=== PATIENT | female | born 1940 | race Caucasian/White ===

== ENCOUNTER → 2016-10-13 | Day surgery (SDC) | payer MEDICARE, BC ==
[~2016-10-13] MED LIST: ACET325 PO; ACETAMINOPHEN/HYDROcodone 325 MG/5 MG TAB ONE; ASPI81TA82 PO; BUPIVACAINE HCL PF 0.5% 30 ML VIAL ONE; BUPIVACAINE/EPINEPHRINE 0.5% PF 30 ML VIAL ONE; CARV3.12 PO; DICL50 PO; FIORIC PO; FOLI1TAB PO; GABA300C3 PO; HYDROCORTISONE SOD SUCCINATE 100 MG VIAL ONE; LACTATED RINGER'S 1000 ML INJ 1,000 ML ONE; MEPERIDINE HCL 25 MG/ML VIAL IV ONE; MIDAZOLAM HCL 2 MG/2 ML VIAL ONE; OMPR20CCR PO; ONDANSETRON HCL 4 MG/2 ML VIAL IV PUSH ONE; PRED5 PO; PROG100C PO; PROPOFOL 200 MG/20 ML AMP IV ONE; ceFAZolin INJ 1,000 MG VIAL ONE
--- NOTE | 2016-10-13 10:23 | RADRPT ---
EXAM DATE/TIME: 10/13/2016 08:47 [facility] COMPARISON: FLUOROSCOPY PORTABLE UP TO 1HR, October 13, 2016, 0:00. INDICATIONS : Hardware removal. MEDICAL HISTORY : Prior fracture. SURGICAL HISTORY : Fracture repair. ENCOUNTER: Initial ACUITY: 1 day PAIN SCORE: Non-responsive. LOCATION: Right knee. FINDINGS: The exam demonstrates an old fracture through the distal right radius. The hardware has been removed. The alignment is adequate. CONCLUSION: 1. Successful hardware removal from the distal right radial fracture. Cyril Robison MD on October 13, 2016 at 10:01 Board Certified Radiologist. This report was verified electronically.
--- NOTE | 2016-10-15 11:07 | MP ---
cc: KELSIE SOLOMON DATE OF SURGERY: 10/13/2016 PREOPERATIVE DIAGNOSIS: Right knee painful hardware. POSTOPERATIVE DIAGNOSIS: Right knee painful hardware. OPERATION: Removal of deep hardware, right knee. SURGEON: Dr. Kelsie Solomon. SPINNING AND WINDING SUPERVISOR: Boris SCHUSTER. ANESTHESIA: General. ESTIMATED BLOOD LOSS: Less than 50 cc TOURNIQUET TIME: Zero minutes. COMPLICATIONS: None. JUSTIFICATION: The patient is a 76 year-old female who sustained previous right tibia plateau fracture. She has undergone previous surgical open reduction internal fixation with Dr. Pulido, in [place]. She has had some collapse across her fracture with failed hardware and symptomatic pain in this region. The patient was counseled as to the risks, benefits and alternatives of removal of the deep hardware right knee. She did wish to proceed. PROCEDURE IN DETAIL: A written consent obtained. The patient was identified by name, taken to the operating room, placed supine on the operating room table. General anesthesia was administered as well as 1 gram of IV Ancef. The right lower extremity was prepped and draped using isopropyl alcohol, Hibiclens solution and DuraPrep solution. After time-out was performed, a longitudinal incision was made over the lateral aspect of the right lower extremity. Dissection was carried down to the level of hardware. The soft tissues were protected and a screwdriver was used to remove all screws. A [place] elevator was then used to elevate the freely deep hardware plate and this was all subsequently removed. The surgical wound was then thoroughly irrigated with sterile saline solution. The deep fascial layer was closed with #1 Vicryl suture. The subcutaneous layer closed with 3-0 Vicryl suture. Skin was closed with Dermabond. Sterile dressing applied. The patient tolerated the procedure well. No intraoperative complication noted. MD JOAQUÍN Crane/VALERIE /10:06 AM /11:01 AM
== END | disposition home or self-care (01) ==
LOC: ESDC 07:32
PROVIDERS: ATTEND Orthopaedic Surgery Sports Medicine
DX: T84.84XA Pain due to internal orthopedic prosthetic devices, implants and grafts, initial encounter (principal)
CPT/HCPCS: 01400; 20680; 73560; 76000; J0690; J1720; J2175; J2250; J2405; J3010; J7120

== ENCOUNTER 2016-11-23 13:53 | Inpatient (IN) | payer MEDICARE, BC ==
[~2016-11-23] VITALS: Ht 165.1 cm; Wt 68.2 kg
[2016-11-24] MEDS ORDERED: WARF-20 PO (10:37)
[2016-11-24] MEDS ORDERED: VOLT100T PO (10:37)
[2016-11-24] MEDS ORDERED: PRIL20TA2 PO (10:37)
[2016-11-24] MEDS ORDERED: PRED1 PO (10:37)
[2016-11-24] MEDS ORDERED: GABA300C5 PO (10:37)
[2016-11-24] MEDS ORDERED: FOLI1TAB6 PO (10:37)
[2016-11-24] MEDS ORDERED: CARV6.252 PO (10:37)
[2016-11-24] MEDS ORDERED: PROG100C PO (10:37)
[2016-11-24] MEDS ORDERED: WARF-60 PO (10:37)
[2016-11-24] MEDS ORDERED: BUTATAB6 PO (10:37)
[2016-11-24] MEDS ORDERED: MENE0.3T3 PO (10:37)
[2016-12-11] MEDS ORDERED: ENOX40P SQ (06:50)
[2016-12-11] MEDS ORDERED: HYDR-3288 PO (06:51)
[2016-12-11] MEDS ORDERED: ASPI81CH37 CHEW (06:51)
[2016-12-11 07:09] VITALS: BP 142/63; PULSE 57; RESP 18; TEMP 98.2; O2SAT 99
[2016-12-11] MEDS ORDERED: ceFAZolin 2 GM PREMIX 50 ML ONE (07:46)
[2016-12-11] MEDS ORDERED: VANCOMYCIN HCL 1000 MG VIAL ONE (07:46)
[2016-12-11] MEDS ORDERED: DEXAMETHASONE SOD PHOS 20 MG/5 ML VIAL ONE (07:46)
[2016-12-11] MEDS ORDERED: DEXAMETHASONE SOD PHOS 20 MG/5 ML VIAL IV SCH (07:52)
[2016-12-11] MEDS ORDERED: GENTAMICIN SULFATE 80 MG/2 ML VIAL ONE (07:54)
[2016-12-11] MEDS ORDERED: LACTATED RINGER'S 1000 ML INJ 1,000 ML ONE (08:03)
[2016-12-11 08:08] LABS: PROTHROMBIN TIME - PATIENT 10.9 SEC (9.8-11.6)
[2016-12-11] MEDS ORDERED: Post-op Orders (for Pharmacy) MISC XX ONE (08:30)
[2016-12-11] MEDS ORDERED: ZOLPIDEM TARTRATE 5 MG TAB PO PRN (08:30)
[2016-12-11] MEDS ORDERED: ONDANSETRON HCL 4 MG/2 ML VIAL IVP PRN (08:30)
[2016-12-11] MEDS ORDERED: ACETAMINOPHEN/HYDROcodone 325 MG/7.5 MG TAB PO PRN (08:30)
[2016-12-11] MEDS ORDERED: SODIUM CHLORIDE 0.9% FLUSH 5 ML FLUSH IVF PRN (08:30)
[2016-12-11] MEDS ORDERED: diphenhydrAMINE HCL 50 MG/ML VIAL IV PRN (08:30)
[2016-12-11] MEDS ORDERED: BISACODYL 10 MG SUPP RECTAL PRN (08:30)
[2016-12-11] MEDS ORDERED: MIDAZOLAM HCL 2 MG/2 ML VIAL ONE (08:55)
[2016-12-11] MEDS ORDERED: APREPITANT 40 MG CAP ONE (08:55)
[2016-12-11] MEDS ORDERED: FAMOTIDINE 20 MG/2 ML VIAL ONE (08:56)
[2016-12-11] MEDS ORDERED: TRANEXAMIC PERI-ARTICULAR 3,000 MG/NS 100 ML P-ARTICULR SCH ×2 (09:00)
[2016-12-11] MEDS ORDERED: VANCOMYCIN 1000 MG/NS 250 ML (for <70 kg) IV SCH ×2 (09:00)
[2016-12-11] MEDS ORDERED: TRANEXAMIC ACID IV SCH (09:00)
[2016-12-11] MEDS ORDERED: ROPIVACAINE PERI-ARTICULAR INJECTION. P-ARTICULR SCH ×5 (09:00)
[2016-12-11] MEDS ORDERED: SODIUM CHLORIDE 0.9% IV SCH (09:00)
[2016-12-11] MEDS ORDERED: POVIDONE IODINE 7.5% SCRUB 118 ML BOTTLE TOPICAL SCH (09:00)
[2016-12-11] MEDS: SODIUM CHLORIDE 0.9% FLUSH 5 ML FLUSH IVF SCH ×2 (09:00→20:21)
[2016-12-11] MEDS ORDERED: CHLORHEXIDINE GLUCONATE 4% SOLN 120 ML BTL TOPICAL SCH (09:00)
[2016-12-11] MEDS ORDERED: ceFAZolin 2 GM PREMIX 50 ML IV SCH (09:00)
[2016-12-11] MEDS: PANTOPRAZOLE SOD 20 MG DELAYED RELEASE TAB PO SCH (09:30)
[2016-12-11] MEDS ORDERED: PROGESTERONE 100 MG PO SCH (09:45)
[2016-12-11] MEDS: FOLIC ACID 1 MG TAB PO SCH (10:00)
[2016-12-11] MEDS: CARVEDILOL 6.25 MG TAB PO SCH ×2 (10:00→20:21)
[2016-12-11] MEDS: predniSONE 1 MG TAB PO SCH (10:00)
[2016-12-11] MEDS ORDERED: BUPIVACAINE HCL PF 0.5% 30 ML VIAL NERV BLOCK ONE (10:02)
[2016-12-11] MEDS ORDERED: POVIDONE IODINE 5% (ANTISEPSIS KIT) 4 APPLICATIONS EACH NARE PRN (11:00)
[2016-12-11] MEDS ORDERED: METOPROLOL TARTRATE 25 MG TAB PO PRN (11:00)
[2016-12-11] MEDS ORDERED: CHLORHEXIDINE GLUCONATE 2 % 1 PACK (2 CLOTHS) TOPICAL PRN (11:00)
[2016-12-11] MEDS ORDERED: LACTATED RINGER'S 1000 ML IV PRN (11:00)
[2016-12-11] MEDS ORDERED: INSULIN HUMAN REGULAR 1,000 UNITS/10 ML VIAL SQ PRN (11:00)
[2016-12-11] MEDS ORDERED: SODIUM CHLORID 0.9% 500 ML IV PRN (11:00)
[2016-12-11] MEDS ORDERED: ACETAMINOPHEN 1000 MG/100 ML VIAL IV ONE (11:37)
[2016-12-11] MEDS ORDERED: LACTATED RINGER'S 1000 ML INJ 1,000 ML IV ONE (12:58)
[2016-12-11] MEDS ORDERED: ePHEDrine/NS 25 MG/5 ML SYR IV ONE (12:58)
[2016-12-11] MEDS ORDERED: NEOSTIGMINE 3 MG/3 ML SYR IV ONE (12:58)
[2016-12-11] MEDS ORDERED: PROPOFOL 200 MG/20 ML AMP IV ONE (12:58)
[2016-12-11] MEDS ORDERED: ONDANSETRON HCL 4 MG/2 ML VIAL IV PUSH ONE (12:58)
[2016-12-11] MEDS ORDERED: DO NOT ADM ANY ANTICOAGULANT DRUGS PRN (13:03)
[2016-12-11] MEDS ORDERED: *morphine SULFATE 8 MG/ML PERIprocedure ONLY ONE ×3 (13:23→14:14)
[2016-12-11] MEDS ORDERED: fentaNYL CITRATE 250 MCG/5 ML AMP ONE (13:35)
--- NOTE | 2016-12-11 13:41 | HHI.DCPOC ---
Discharge Care Plan Diagnosis: (1) Primary localized osteoarthrosis, lower leg Your Health Problems Are: Difficulty with ADL Goals to Promote Your Health * To prevent worsening of your condition and complications * To maintain your health at the optimal level Directions to Meet Your Goals Take your medications as prescribed Follow your dietary instruction Follow activity as directed Keep your appointments as scheduled Take your immunizations and boosters as scheduled If your symptoms worsen call your PCP, if no PCP go to Urgent Care Center or Emergency Room Smoking is Dangerous to Your Health. Avoid second hand smoke Call the 24-hour hour crisis hotline for domestic abuse at Elvis White Dec 11, 2016 13:41
[2016-12-11] MEDS ORDERED: CPMMACHINE (13:42)
[2016-12-11] MEDS: SODIUM CHLOR 0.9% 1000 ML INJ 1,000 ML IV SCH ×2 (13:47→20:00)
--- NOTE | 2016-12-11 14:12 | RADRPT ---
EXAM DATE/TIME: 12/11/2016 13:26 [facility] COMPARISON: KNEE RIGHT LTD (1 OR 2 VWS), October 13, 2016, 8:47. INDICATIONS : Post right knee replacement MEDICAL HISTORY : None. SURGICAL HISTORY : right knee ENCOUNTER: Initial ACUITY: 1 day PAIN SCORE: 8/10 LOCATION: Right knee FINDINGS: 4 views of the right knee following recent total knee arthroplasty demonstrates a long stem femoral a nd tibial component. There is a radiolucent patellar component. A small joint effusion is present and there is soft tissue gas. No unexpected finding is identified. CONCLUSION: Expected findings are identified following right total knee arthroplasty with longste m prostheses. Alejandro Arboleda MD on December 11, 2016 at 14:09 Board Certified Radiologist. This report was verified electronically.
[2016-12-11 16:00] VITALS: BP 141/64; PULSE 94; RESP 16; TEMP 95.8; O2SAT 95
[2016-12-11] MEDS: WARFARIN SOD 6 MG TAB PO SCH (17:02)
[2016-12-11 19:09] VITALS: O2SAT 95
[2016-12-11 19:41] VITALS: BP 113/56; PULSE 80; RESP 18; TEMP 96.7; O2SAT 98
[2016-12-11 20:00] VITALS: PULSE 70
[2016-12-11] MEDS: GABAPENTIN 300 MG CAP PO SCH (20:21)
[2016-12-11 20:49] LABS: PROTHROMBIN TIME - PATIENT 10.7 SEC (9.8-11.6)
--- NOTE | 2016-12-11 20:53 | HHI.PR ---
Objective Vital Signs Date Time Temp Pulse Resp B/P Pulse Ox O2 Delivery O2 Flow Rate FiO2 12/11/16 19:41 96.7 80 18 113/56 98 12/11/16 19:09 95 Nasal Cannula 2.00 12/11/16 16:00 95.8 94 16 141/64 95 12/11/16 14:45 97.5 88 13 137/64 95 Nasal Cannula 2 12/11/16 14:15 90 22 142/70 94 Nasal Cannula 2 12/11/16 14:00 84 20 129/60 98 Nasal Cannula 2 12/11/16 13:45 83 15 135/62 95 Nasal Cannula 2 12/11/16 13:30 79 16 142/66 96 Nasal Cannula 2 12/11/16 13:15 84 15 153/68 96 Nasal Cannula 2 12/11/16 13:08 93 22 141/63 96 Nasal Cannula 2 12/11/16 13:04 98.1 94 24 176/76 97 Nasal Cannula 2 12/11/16 07:09 98.2 57 18 142/63 99 I/O 12/10/16 12/10/16 12/10/16 12/11/16 12/11/16 12/11/16 06:59 14:59 22:59 06:59 14:59 22:59 Intake Total 2348 ml Output Total 675 ml Balance 1673 ml Intake Oral 5 ml IV Total 343 ml Other 2000 ml Output Urine Total 625 ml Estimated Blood Loss 50 ml Assessment and Plan Assessment and Plan This is a 76-year-old female seen on medical consultation following a revision of right total knee replacement. She was seen by the undersigned in room 1608. She is alert and oriented. Her pain is well controlled. Her right knee is in a CPM machine. She has a history of bilateral cataracts, cardiac murmur, atrial fibrillation on Coumadin, reflux disease, tubal ligation, osteoarthritis, bilateral total hip replacement and right total knee replacement Plan as follows Pain management Physical therapy Bowel regimen Prophylactic antibiotics were given intraoperatively Wound management per orthopedics Follow labs Keep hemoglobin above 8 Replace electrolytes as needed Discussed with patient Discussed with nurse We will follow daily while hospitalized Thank you for this consult Consult dictation to follow Jesus Mccarthy MD Dec 11, 2016 20:53
[2016-12-11] MEDS ORDERED: ESTERIFIED ESTROGENS PO SCH (21:00)
[2016-12-11 23:41] VITALS: BP 100/53; PULSE 79; RESP 17; TEMP 96.4; O2SAT 96
[2016-12-12] VITALS (7 sets, daily range): BP systolic 95–139; BP diastolic 45–60; PULSE 62–86; RESP 18; TEMP 95.5–97.8; O2SAT 96–100
[2016-12-12] MEDS: SODIUM CHLOR 0.9% 1000 ML INJ 1,000 ML IV SCH ×2 (05:58→16:00)
--- NOTE | 2016-12-12 07:27 | MB ---
cc: LEW LANDERS MD DATE OF CONSULTATION: 12/11/2016 DATE OF : 1940 REASON FOR CONSULTATION Medical management. HISTORY OF PRESENT ILLNESS This is a pleasant 76-year-old white female who had an accidental fall back in March 2016 and had knee surgery. Today she had a revision of the right total knee. She is currently in her private room. She is alert, answers questions appropriately and denies any chest pain, no shortness of breath, no headache. Her mouth is very dry secondary to her post-op period. The patient has osteoarthritis and failed her outpatient therapy status. PAST MEDICAL HISTORY 1. History of atrial fibrillation, labile. 2. GERD. 3. Low back pain. 4. Cataracts. 5. Osteoarthritis. PAST SURGICAL HISTORY 1. Tonsillectomy and adenoidectomy. 2. Tubal ligation. 3. Bilateral hip replacement. 4. Negative stress test recently. ALLERGIES No known. MEDICATIONS Medications reported: 1. Prednisone. 2. Pain management. 3. Warfarin. 4. Gabapentin. 5. Carvedilol. 6. Estrogen. 7. Voltaren. 8. Progesterone. 9. Prilosec. 10.Folic acid. SOCIAL HISTORY The patient is , no children, and lives alone. She does have support from her ex- and she has a sister coming into town to help her post-op when she gets home. No alcohol, tobacco or illicit drug use. FAMILY HISTORY Father had a brain tumor. Mother from complications of Alzheimer's disease. REVIEW OF SYSTEMS A 12-point review was obtained. Positives noted are very dry mouth. She is status post revision of right total knee. Other systems are negative or unremarkable. PHYSICAL EXAMINATION VITAL SIGNS: Temperature 97.5, pulse 88, respirations 14, blood pressure 137/64. O2 sat 95; currently on nasal cannula at 2 liters. GENERAL: A slim, well-developed white female who looks younger than her stated age resting in the bed. She is awake and a fairly good historian. SKIN: [place], warm and dry. HEENT: Atraumatic, normocephalic. PERRLA. No scleral icterus. Mucous membranes are dry, especially her oral cavity. NECK: Supple. CARDIOVASCULAR: S1, S2. Rhythm is regular. Systolic murmur grade 3/6 at the left sternal border. She has no edema and her pulses are intact. Extremities are warm. LUNGS: Essentially clear anteriorly and posteriorly with no audible rhonchi. ABDOMEN: Flat, soft, nontender, nondistended. Bowel sounds are soft. EXTREMITIES: Moves her extremities with purpose. She can move the toes on her right foot on command. Her leg is secured and wrapped post-op, and she is currently on the CPM machine. NEUROLOGIC: She is alert and oriented. Speech is clear. PSYCHIATRIC: Mood and affect are appropriate. LABORATORY INR is 1. IMAGING Knee x-ray: Expected findings following a right total knee arthroplasty with long stem prosthesis. ASSESSMENT 1. Right total knee arthroplasty with long stem prosthesis. 2. GERD. 3. History of atrial fibrillation with a negative stress test pre-op. 4. History of low back pain. 5. Osteoarthritis. PLAN Our plan is to monitor her medical management which includes her vital signs q.4h. and as needed. Will reconcile her medications. Will monitor her heart rate and blood pressure. Post-op pain management as well as post-op ortho care will be managed by the orthopedic team. Will place the patient on telemetry. Her palpable rhythm is regular. Will monitor for any atrial fibrillation or any dysrhythmia. The patient is full code, full aggressive care. Thank you very much for this consult. Dictated by: HERB Topete MD CHRISTIANO Hawkins/SHANE /5:55 PM /6:59 AM
--- NOTE | 2016-12-12 08:33 | PD.ORT.PN ---
Subjective Post Op Day #: 1 Subjective Remarks pain under control. Objective Vitals Vital Signs Date Time Temp Pulse Resp B/P Pulse Ox O2 Delivery O2 Flow Rate FiO2 12/12/16 04:30 96.8 70 18 95/55 100 12/11/16 23:41 96.4 79 17 100/53 96 12/11/16 20:00 70 12/11/16 19:41 96.7 80 18 113/56 98 12/11/16 19:09 95 Nasal Cannula 2.00 12/11/16 16:00 95.8 94 16 141/64 95 12/11/16 14:45 97.5 88 13 137/64 95 Nasal Cannula 2 12/11/16 14:15 90 22 142/70 94 Nasal Cannula 2 12/11/16 14:00 84 20 129/60 98 Nasal Cannula 2 12/11/16 13:45 83 15 135/62 95 Nasal Cannula 2 12/11/16 13:30 79 16 142/66 96 Nasal Cannula 2 12/11/16 13:15 84 15 153/68 96 Nasal Cannula 2 12/11/16 13:08 93 22 141/63 96 Nasal Cannula 2 12/11/16 13:04 98.1 94 24 176/76 97 Nasal Cannula 2 I/O 12/11/16 12/11/16 12/11/16 12/12/16 12/12/16 12/12/16 06:59 14:59 22:59 06:59 14:59 22:59 Intake Total 2348 ml 480 ml 240 ml Output Total 675 ml 350 ml 300 ml Balance 1673 ml 130 ml -60 ml Intake Oral 5 ml 480 ml 240 ml IV Total 343 ml Other 2000 ml Output Urine Total 625 ml 350 ml 300 ml Estimated Blood Loss 50 ml # Bowel Movements 0 0 Other Results Laboratory Tests Test 12/11/16 19:52 Prothrombin Time 10.7 SEC (9.8-11.6) Prothromb Time International 1.0 RATIO Ratio Objective Remarks in bed, nad dressing c/d/i neg homans nvi Assessment & Plan Ortho Post Op Day #: 1 Problem List: Assessment and Plan s/p R TKA wbat daily dressing changes resume coumadin d/c planning home with [facility] and pt f/up [facility] [place] 2 weeks Elvis White Dec 12, 2016 08:33
[2016-12-12] MEDS: CARVEDILOL 6.25 MG TAB PO SCH ×2 (08:34→20:48)
[2016-12-12] MEDS: SODIUM CHLORIDE 0.9% FLUSH 5 ML FLUSH IVF SCH ×2 (08:34→21:00)
[2016-12-12] MEDS: PANTOPRAZOLE SOD 20 MG DELAYED RELEASE TAB PO SCH (08:34)
[2016-12-12] MEDS: FOLIC ACID 1 MG TAB PO SCH (08:34)
--- NOTE | 2016-12-12 08:35 | HHI.FF ---
Face to Face Verification Diagnosis: (1) Primary localized osteoarthrosis, lower leg Physical Therapy Gait training, Transfer training, bed to chair Knee: Total knee, Protocol: Right, Full weight bearing Right LE Weight Bearing: WB as tolerated Nursing RN: 3 days/week x 2 weeks Nursing: Dressing changes Dressing Changes: Daily dressing change I have seen patient Rebecca Colindres on 12/12/16. My clinical findings support the need for the requested home health care services because: Limited ability to care for self High risk of falls I certify that my clinical findings support that this patient is homebound because: Post-op weakness Unsteady gait/balance Elvis White Dec 12, 2016 08:35
[2016-12-12] MEDS: predniSONE 1 MG TAB PO SCH (08:46)
[2016-12-12 09:13] LABS: HEMATOCRIT 29.2 % (35.0-46.0); MEAN CELL VOLUME 91.8 FL (80.0-100.0); MEAN CORPUSCULAR HEMOGLOBIN 30.9 PG (27.0-34.0); MEAN CORPUSCULAR HGB CONC 33.6 % (32.0-36.0); PLATELET COUNT 166 TH/MM3 (150-450); RED BLOOD COUNT 3.18 MIL/MM3 (4.00-5.30); RED CELL DISTRIBUTION WIDTH 14.2 % (11.6-17.2); REVIEW FLAG FINAL; WHITE BLOOD COUNT 8.4 TH/MM3 (4.0-11.0)
[2016-12-12 09:24] LABS: BICARBONATE 27.9 MEQ/L (21.0-32.0); MAGNESIUM 1.9 MG/DL (1.5-2.5); POTASSIUM 4.4 MEQ/L (3.5-5.1)
--- NOTE | 2016-12-12 11:54 | HHI.PR ---
Subjective Subjective Remarks right knee pain minimal working with PT BM yesterday no cp no sob no n/v tolerating diet well tele reviewed, SR stable, afib yesterday Review of Systems Constitutional Constitutional Remarks 12 point ros completed, negative except as noted above Vitals/Results Intake & Output 12/11/16 12/11/16 12/12/16 15:00 23:00 07:00 Intake Total 2348 ml 480 ml 240 ml Output Total 675 ml 350 ml 300 ml Balance 1673 ml 130 ml -60 ml Intake Oral 5 ml 480 ml 240 ml IV Total 343 ml Other 2000 ml Output Urine Total 625 ml 350 ml 300 ml Estimated Blood Loss 50 ml # Bowel Movements 0 0 Vital Signs Vital Signs Date Time Temp Pulse Resp B/P Pulse Ox O2 Delivery O2 Flow Rate FiO2 12/12/16 10:37 100 12/12/16 08:00 96.9 62 18 98/45 100 12/12/16 04:30 96.8 70 18 95/55 100 12/11/16 23:41 96.4 79 17 100/53 96 12/11/16 20:00 70 12/11/16 19:41 96.7 80 18 113/56 98 12/11/16 19:09 95 Nasal Cannula 2.00 12/11/16 16:00 95.8 94 16 141/64 95 12/11/16 14:45 97.5 88 13 137/64 95 Nasal Cannula 2 12/11/16 14:15 90 22 142/70 94 Nasal Cannula 2 12/11/16 14:00 84 20 129/60 98 Nasal Cannula 2 12/11/16 13:45 83 15 135/62 95 Nasal Cannula 2 12/11/16 13:30 79 16 142/66 96 Nasal Cannula 2 12/11/16 13:15 84 15 153/68 96 Nasal Cannula 2 12/11/16 13:08 93 22 141/63 96 Nasal Cannula 2 12/11/16 13:04 98.1 94 24 176/76 97 Nasal Cannula 2 CBC/BMP: 12/12/16 0702 12/12/16 0702 Lab Results Laboratory Tests Test 12/11/16 12/12/16 19:52 07:02 Prothrombin Time 10.7 SEC Prothromb Time International 1.0 RATIO Ratio White Blood Count 8.4 TH/MM3 Red Blood Count 3.18 MIL/MM3 Hemoglobin 9.8 GM/DL Hematocrit 29.2 % Mean Corpuscular Volume 91.8 FL Mean Corpuscular Hemoglobin 30.9 PG Mean Corpuscular Hemoglobin 33.6 % Concent Red Cell Distribution Width 14.2 % Platelet Count 166 TH/MM3 Mean Platelet Volume 7.9 FL Sodium Level 135 MEQ/L Potassium Level 4.4 MEQ/L Chloride Level 103 MEQ/L Carbon Dioxide Level 27.9 MEQ/L Anion Gap 4 MEQ/L Blood Urea Nitrogen 11 MG/DL Creatinine 0.86 MG/DL Estimat Glomerular Filtration 64 ML/MIN Rate Random Glucose 82 MG/DL Calcium Level 8.2 MG/DL Phosphorus Level 2.7 MG/DL Magnesium Level 1.9 MG/DL Physical Exam General General Appearance: Well Developed, Well Nourished, No Acute Distress, Comfortable Eyes Eye Exam: Pupils Equal, Pupils Reactive Ears & Nose Ears & Nose Exam: Nasal Mucosa [place] Throat Throat Exam: Oral Mucosa [place] & Moist Neck Neck Exam: Neck Supple, Trachea Midline Pulmonary Resp Exam: Clear Bilaterally, No Distress Cardiology CV Exam: Regular Gastrointestinal/Abdomen GI Exam: Soft, Non-Tender, Non-Distended Musculoskeletal MS Exam: Joints Intact MS Remarks Right knee dressing D/I Integumentary Skin Exam: Warm, Dry Extremeties Extremities Exam: Pedal Pulses Palpable, Trace Edema Neurologic Neuro Exam: Alert, Awake, Oriented, Speech Clear, Sanitary Landfill Supervisor Equal VTE Prophylaxis VTE Prophylaxis Device: SCDs VTE Prophylaxis Meds: Coumadin Assessment/Plan Assessment/Plan ASSESSMENT 1. Right total knee arthroplasty 2. GERD. 3. Atrial fibrillation with a negative stress test pre-op. 4. History of low back pain. 5. Osteoarthritis. PLAN continue with post op ortho care pain management PT Wound care Bowel regimen Coumadin for DVT prophylaxis Hx afib, stable telemetry monitoring Continue Coreg HH stable continue with PT D/W RN D/W pt and D/W Dr. Mccarthy This pt was seen by myself and Dr. Mccarthy, this note is written on his behalf Corina Faustin Dec 12, 2016 11:54
[2016-12-12] MEDS: ACETAMINOPHEN/HYDROcodone 325 MG/7.5 MG TAB PO PRN ×2 (12:44→16:34)
[2016-12-12] MEDS: WARFARIN SOD 6 MG TAB PO SCH (16:32)
--- NOTE | 2016-12-12 16:41 | MP ---
cc: KELSIE RITCHIE M.D. DATE OF SURGERY: 12/11/2016 PREOPERATIVE DIAGNOSIS: Right knee osteoarthritis. Right tibial plateau fracture, status post open reduction, internal fixation with failure of fixation, collapse of the tibia and severe vagus performance. POSTOPERATIVE DIAGNOSIS: Right knee osteoarthritis. Right tibial plateau fracture, status post open reduction, internal fixation with failure of fixation, collapse of the tibia and severe vagus performance. OPERATION: Right total knee arthroplasty with revision components. SURGEON: Kelsie Ritchie MD. PUBLICATIONS SALES REPRESENTATIVE: HERB Partida ANESTHESIA: General with adductor canal block. ESTIMATED BLOOD LOSS: 100 cc. TOURNIQUET TIME: One hour, 53 minutes at 250 mmHg. COMPLICATIONS: None. IMPLANTS USED: Depuye Sigma size 3 posterior stabilized femoral component size 14 x 115 mm. Femoral stem size 2.5 mm sigma rotating platform tibia baseplate, size 29 mm sleeve size 14 x 75 mm tibial stem size 12.5 mm polyethylene tibial insert, size 32 patella. JUSTIFICATION: This patient is a 76-year-old female who had a previous severe right tibial plateau fracture. She has undergone previous treatment with Dr. Gómez Damon at [facility], to include Open reduction, internal fixation tibia plateau fracture. She has significant symptoms of pain and deformity has been progressively worse since her surgery. [facility]. She did have evidence of prior failure of surgical fixation with collapse of the fracture and retained lateral hardware. The patient has undergone a surgical procedure were I removed the lateral hardware. She has been able to heal that wound and incision. The patient has severe collapse across her fracture. Her pain and deformity prevents her from activities of daily living. She has failed greater than 3 months of prior treatment to include medications, physical therapy, bracing, ambulatory assisted aids, home exercise program, activity modification. X-rays of the knee showed severe collapse across the fracture with the resulting deformity and post traumatic osteoarthritis. The patient was counseled as and alternatives to a surgical total knee arthroplasty. The risks such include but limited to bleeding the age, infection damage to nerves, blood vessels, fracture, loosening, failure of components, blood clots, pulmonary embolism, stroke, even . The patient's pain is severe. She favored benefits over the risks, she did wish to surgery. A written consent obtained. The patient identified by name, taken to the operating room, supine on the operating room table, general anesthesia was administered as well as 2 grams of IV Ancef 1 gram of IV vancomycin. A well-padded tourniquet placed right thigh. The right lower extremity was prepped and draped using Isopropyl alcohol, Hibiclens solution and Chloraprep solution. After time-out was performed an Esmarch bandage was used to exsanguinate the right lower extremity and tourniquet inflated to 250 mmHg, a large incision was made over the anterior aspect of the right knee, a medial parapatellar arthrotomy was performed patella was everted. Approximately 8 mm of patella was resected and a 32 mm guide was placed, [address] the 32-mm trial fit well. Attention turned to the femur were an intramedullary guide was placed. The distal femoral guide was set to remove 10 mm of distal femur, 5 degrees off the anatomic valgus axis alignment oscillating saw was used to perform the distal femoral cut. There is evidence of some bone deficiency and void of the lateral femoral condyle, I took an additional 2 mm of distal femur, in order to get an appropriate cut. Attention turned to the tibia where a extramedullary tibial guide was set to remove 6 mm of the lowest portion of medial tibial plateau. The tibia guide was placed, tibia was performed. There is evidence of a severe void deficiency in the lateral tibial plateau and I resected an additional 3 mm of the tibia. At this point 10 mm spacer block showed full extension. Attention was turned back to the femur. The AP sizing block measured size to size three. The anterior reference 3 degree external rotation guide was used to pin a size three block in place. The anterior patient service coordinator chamfer cuts were performed. A size 3, PCL box and pinned in place and PCL box with an oscillating saw. The medial lateral meniscus remnants were removed as well as bone and soft tissue debris from patient service coordinator portion of the knee. There is evidence of severe osteoporosis of bone and the patient had some deficiency of the medial femoral condyle. Attention turned back to the tibia where an intramedullary guide sridhar was placed, this was followed by sequential reaming up to size 14. Subsequently a Xcoveryuy sleeve broach 29 mm was then tamped into place for purchase and fixation. Trial was evaluated and final components were then cemented in place as above. With the 12.5 mm polyethylene tibial insert, the leg achieved full extension, 0 degrees of flexion to proximally 135 the patella was noted to track centrally. There was grade 1 valgus laxity at full extension. Tourniquet deflated Bovie cautery was used for hemostasis, surgical wounds thoroughly irrigated sterile saline pulse lavage, antibiotic impregnated solution. The arthrotomy incision was closed with #1 Vicryl suture, subcutaneous tissue with 2-0 Vicryl suture. Skin was closed Dermabond. Sterile dressing applied. The patient tolerated the procedure with no intraoperative complications noted. Boris White physician registered nurse first assistant was present during the procedure to include patient positioning. It was felt that it was a medical necessity of physician registered nurse first assistant was indicated due to laxity, he assisted with appropriate manipulation leg and also traction, muscle, tendon bone, neurovascular structure. He assisted with preparation of bone and also implantation of the prosthetic replacement. MD JOAQUÍN Crane/sasha /12:35 PM /3:56 PM
[2016-12-12] MEDS: MULTIVITAMINS/MINERALS THERAPEUTIC TAB PO SCH (20:48)
[2016-12-12] MEDS: DOCUSATE SODIUM 100 MG CAP PO SCH (20:48)
[2016-12-12] MEDS: MORPHINE SULFATE 4 MG/ML INJ IV PUSH PRN (20:48)
[2016-12-13] VITALS (7 sets, daily range): BP systolic 118–181; BP diastolic 57–75; PULSE 62–91; RESP 16–18; TEMP 98.3–98.9; O2SAT 92–100
[2016-12-13] MEDS: ACETAMINOPHEN/HYDROcodone 325 MG/7.5 MG TAB PO PRN ×5 (00:18→21:04)
[2016-12-13] MEDS: GABAPENTIN 300 MG CAP PO SCH ×2 (00:18→21:02)
[2016-12-13] MEDS: MORPHINE SULFATE 4 MG/ML INJ IV PUSH PRN (00:40)
[2016-12-13] MEDS: SODIUM CHLOR 0.9% 1000 ML INJ 1,000 ML IV SCH ×3 (02:00→22:00)
--- NOTE | 2016-12-13 07:46 | PD.ORT.PN ---
Subjective Post Op Day #: 2 Subjective Remarks increase in pain yesterday and last night after PT. unable to do too much with PT. Objective Vitals Vital Signs Date Time Temp Pulse Resp B/P Pulse Ox O2 Delivery O2 Flow Rate FiO2 12/13/16 04:00 98.9 90 18 149/67 94 12/13/16 00:40 98.3 85 18 181/75 93 12/12/16 20:10 97.8 69 18 139/60 96 12/12/16 19:33 Room Air 12/12/16 17:40 16 12/12/16 16:33 99 21 12/12/16 16:00 96.5 69 18 121/57 97 12/12/16 12:00 95.5 86 18 95/49 100 12/12/16 10:37 100 12/12/16 08:00 96.9 62 18 98/45 100 I/O 12/12/16 12/12/16 12/12/16 12/13/16 12/13/16 12/13/16 07:00 15:00 23:00 07:00 15:00 23:00 Intake Total 240 ml 600 ml 480 ml 480 ml Output Total 300 ml Balance -60 ml 600 ml 480 ml 480 ml Intake Oral 240 ml 600 ml 480 ml 480 ml Output Urine Total 300 ml # Voids 1 3 5 # Bowel Movements 0 0 0 0 Result Diagram: 12/12/16 0712/12/16 0702 Objective Remarks in bed, nad incision no erythema, no drainage neg homans nvi Assessment & Plan Ortho Post Op Day #: 2 Problem List: Assessment and Plan s/p R TKA wbat daily dressing changes resume coumadin PT - gentle ROM, focus on extension CPM as tolerated - caused severe pain yesterday d/c planning home with [facility] and pt f/up dr[place] 2 weeks Elvis White Dec 13, 2016 07:46
--- NOTE | 2016-12-13 08:46 | HHI.PR ---
Subjective History of Present Illness Patient deny any complaint except right knee post op pain. d/w RN and at bed side. Anemia check Iron studies and B12 and Folic acid. Hyponatremia will monitor. Review of Systems Constitutional Constitutional: Fatigue, Weakness Musculoskeletal MS Remarks s/p right knee surgery / post op pain. Vitals/Results Intake & Output 12/12/16 12/12/16 12/13/16 15:00 23:00 07:00 Intake Total 600 ml 480 ml 480 ml Balance 600 ml 480 ml 480 ml Intake Oral 600 ml 480 ml 480 ml # Voids 1 3 5 # Bowel Movements 0 0 0 Vital Signs Vital Signs Date Time Temp Pulse Resp B/P Pulse Ox O2 Delivery O2 Flow Rate FiO2 12/13/16 04:00 98.9 90 18 149/67 94 12/13/16 00:40 98.3 85 18 181/75 93 12/12/16 20:10 97.8 69 18 139/60 96 12/12/16 19:33 Room Air 12/12/16 17:40 16 12/12/16 16:33 99 21 12/12/16 16:00 96.5 69 18 121/57 97 12/12/16 12:00 95.5 86 18 95/49 100 12/12/16 10:37 100 CBC/BMP: 12/12/16 0702 12/12/16 0702 Physical Exam General General Appearance: Well Developed, Well Nourished, No Acute Distress, Comfortable Eyes Eye Exam: Pupils Equal, Pupils Reactive, Sclera White, Extraocular Movement Intact Ears & Nose Ears & Nose Exam: Nasal Mucosa [place] Throat Throat Exam: Oral Mucosa [place] & Moist, Oral Pharynx Normal Neck Neck Exam: Neck Supple, Trachea Midline Pulmonary Resp Exam: Clear Bilaterally, No Distress Cardiology CV Exam: Regular Gastrointestinal/Abdomen GI Exam: Soft, Non-Tender, Non-Distended Musculoskeletal MS Remarks s/p right knee surgery /tenderness right knee / surgical wound right knee. Integumentary Skin Exam: Warm, Dry Skin Remarks surgical wound right knee. Extremeties Extremities Exam: Pedal Pulses Palpable, Trace Edema Neurologic Neuro Exam: Alert, Awake, Oriented, Speech Clear, Texturing Machine Fixer Equal VTE Prophylaxis VTE Prophylaxis Device: SCDs VTE Prophylaxis Meds: Coumadin Assessment/Plan Assessment/Plan ASSESSMENT 1. Right total knee arthroplasty 2. GERD. 3. Atrial fibrillation with a negative stress test pre-op. 4. History of low back pain. 5. Osteoarthritis. 6. Anemia check Iron studies and B12 and Folic acid. 7. Hyponatremia will monitor. PLAN continue with post op ortho care pain management PT Wound care Bowel regimen Coumadin for DVT prophylaxis Hx afib, stable telemetry monitoring Continue Coreg HH stable continue with PT D/W RN D/W pt and Check CBC with diff CMP in AM. Discussed Condition with: Patient Livan Robles MD Dec 13, 2016 08:45
[2016-12-13] MEDS: SODIUM CHLORIDE 0.9% FLUSH 5 ML FLUSH IVF SCH ×2 (09:00→21:00)
[2016-12-13] MEDS: predniSONE 1 MG TAB PO SCH (09:00)
[2016-12-13] MEDS: CARVEDILOL 6.25 MG TAB PO SCH ×2 (09:24→21:03)
[2016-12-13] MEDS: FOLIC ACID 1 MG TAB PO SCH (09:24)
[2016-12-13] MEDS: DOCUSATE SODIUM 100 MG CAP PO SCH ×2 (09:25→21:03)
[2016-12-13] MEDS: PANTOPRAZOLE SOD 20 MG DELAYED RELEASE TAB PO SCH (09:25)
[2016-12-13] MEDS: MULTIVITAMINS/MINERALS THERAPEUTIC TAB PO SCH ×2 (09:25→21:03)
[2016-12-13 10:06] LABS: HEMATOCRIT 31.6 % (35.0-46.0); MEAN CELL VOLUME 90.4 FL (80.0-100.0); MEAN CORPUSCULAR HEMOGLOBIN 30.9 PG (27.0-34.0); MEAN CORPUSCULAR HGB CONC 34.1 % (32.0-36.0); PLATELET COUNT 170 TH/MM3 (150-450); RED CELL DISTRIBUTION WIDTH 13.8 % (11.6-17.2); REVIEW FLAG FINAL
[2016-12-13 10:09] LABS: INTERNATIONAL NORMALIZED RATIO 1.2 RATIO; PROTHROMBIN TIME - PATIENT 13.2 SEC (9.8-11.6)
[2016-12-13 10:28] LABS: BICARBONATE 25.5 MEQ/L (21.0-32.0); POTASSIUM 3.9 MEQ/L (3.5-5.1)
[2016-12-13] MEDS: WARFARIN SOD 6 MG TAB PO SCH (17:14)
[2016-12-14] VITALS: BP 126/69; PULSE 93; RESP 17; TEMP 98; O2SAT 96
[2016-12-14] MEDS: ACETAMINOPHEN/HYDROcodone 325 MG/7.5 MG TAB PO PRN ×5 (01:30→17:22)
[2016-12-14 04:00] VITALS: BP 125/60; PULSE 75; RESP 16; TEMP 98.8; O2SAT 95
[2016-12-14 07:43] LABS: INTERNATIONAL NORMALIZED RATIO 1.4 RATIO; PROTHROMBIN TIME - PATIENT 15.8 SEC (9.8-11.6)
--- NOTE | 2016-12-14 07:52 | PD.ORT.PN ---
Subjective Post Op Day #: 3 Subjective Remarks slightly better. pain meds helping. Objective Vitals Vital Signs Date Time Temp Pulse Resp B/P Pulse Ox O2 Delivery O2 Flow Rate FiO2 12/14/16 04:00 98.8 75 16 125/60 95 12/14/16 00:00 98.0 93 17 126/69 96 12/13/16 19:06 Room Air 12/13/16 19:00 98.7 91 16 128/60 100 12/13/16 17:44 94 21 12/13/16 16:00 98.6 75 18 132/63 94 12/13/16 12:00 98.4 62 18 118/57 100 12/13/16 08:00 98.3 69 18 139/63 92 I/O 12/13/16 12/13/16 12/13/16 12/14/16 12/14/16 12/14/16 07:00 15:00 23:00 07:00 15:00 23:00 Intake Total 480 ml 600 ml 480 ml 480 ml Balance 480 ml 600 ml 480 ml 480 ml Intake Oral 480 ml 600 ml 480 ml 480 ml # Voids 5 3 3 3 # Bowel Movements 0 0 0 0 Result Diagram: 12/13/16 0739 12/13/16 0735 Other Results Laboratory Tests Test 12/14/16 07:20 Prothrombin Time 15.8 SEC (9.8-11.6) Prothromb Time International 1.4 RATIO Ratio Objective Remarks in bed, nad dressing c/d/i neg homans nvi Assessment & Plan Ortho Post Op Day #: 3 Problem List: Assessment and Plan s/p R TKA wbat daily dressing changes resume coumadin PT - gentle ROM, focus on extension CPM as tolerated d/c planning home with [facility] and pt - cleared today patient does not want to go to snf f/up dr. [place] 2 weeks Elvis White Dec 14, 2016 07:52
[2016-12-14 07:55] LABS: AUTOMATED NEUTROPHIL # 5.2 TH/MM3 (1.8-7.7); BASOPHIL % 0.4 % (0.0-2.0); EOSINOPHIL # 0.1 TH/MM3 (0-0.4); EOSINOPHIL % 1.1 % (0.0-4.0); HEMATOCRIT 29.6 % (35.0-46.0); HEMO FLAGS DIFF FINAL; LYMPH % 18.4 % (9.0-44.0); LYMPHOCYTE # 1.4 TH/MM3 (1.0-4.8); MEAN CELL VOLUME 91.4 FL (80.0-100.0); MEAN CORPUSCULAR HEMOGLOBIN 31.3 PG (27.0-34.0); MEAN CORPUSCULAR HGB CONC 34.2 % (32.0-36.0); MONO % 11.9 % (0.0-8.0); NEUT % 68.2 % (16.0-70.0); PLATELET COUNT 159 TH/MM3 (150-450); RED BLOOD COUNT 3.24 MIL/MM3 (4.00-5.30); RED CELL DISTRIBUTION WIDTH 13.7 % (11.6-17.2); WHITE BLOOD COUNT 7.6 TH/MM3 (4.0-11.0)
[2016-12-14] MEDS: SODIUM CHLOR 0.9% 1000 ML INJ 1,000 ML IV SCH ×2 (08:00→18:00)
[2016-12-14 08:05] LABS: ANION GAP 7 MEQ/L (5-15); AST (GOT) 37 U/L (15-37); BICARBONATE 26.9 MEQ/L (21.0-32.0); BLOOD UREA NITROGEN 6 MG/DL (7-18); CHLORIDE 103 MEQ/L (98-107); GLOMERULAR FILTRATION RATE 115 ML/MIN (>89); POTASSIUM 3.4 MEQ/L (3.5-5.1); SODIUM (NA) 137 MEQ/L (136-145)
[2016-12-14 08:07] LABS: ALT (GPT) 23 U/L (10-53)
[2016-12-14 08:09] LABS: ALKALINE PHOSPHATASE 97 U/L (45-117); TOTAL BILIRUBIN ADULT 0.5 MG/DL (0.2-1.0)
[2016-12-14] MEDS: SODIUM CHLORIDE 0.9% FLUSH 5 ML FLUSH IVF SCH (09:00)
[2016-12-14] MEDS: DOCUSATE SODIUM 100 MG CAP PO SCH (09:16)
[2016-12-14] MEDS: MULTIVITAMINS/MINERALS THERAPEUTIC TAB PO SCH (09:17)
[2016-12-14] MEDS: CARVEDILOL 6.25 MG TAB PO SCH (09:17)
[2016-12-14] MEDS: FOLIC ACID 1 MG TAB PO SCH (09:17)
[2016-12-14] MEDS: predniSONE 1 MG TAB PO SCH (09:17)
[2016-12-14] MEDS: PANTOPRAZOLE SOD 20 MG DELAYED RELEASE TAB PO SCH (09:39)
--- NOTE | 2016-12-14 09:45 | HHI.PR ---
Subjective History of Present Illness Patient deny any complaint except right knee post op pain. d/w at bed side. Anemia checked Iron studies and B12 and Folic acid. Hyponatremia will monitor. Review of Systems Constitutional Constitutional: Fatigue, Weakness Musculoskeletal MS Remarks s/p right knee surgery / post op pain. Vitals/Results Intake & Output 12/13/16 12/13/16 12/14/16 15:00 23:00 07:00 Intake Total 600 ml 480 ml 480 ml Balance 600 ml 480 ml 480 ml Intake Oral 600 ml 480 ml 480 ml # Voids 3 3 3 # Bowel Movements 0 0 0 Vital Signs Vital Signs Date Time Temp Pulse Resp B/P Pulse Ox O2 Delivery O2 Flow Rate FiO2 12/14/16 04:00 98.8 75 16 125/60 95 12/14/16 00:00 98.0 93 17 126/69 96 12/13/16 19:06 Room Air 12/13/16 19:00 98.7 91 16 128/60 100 12/13/16 17:44 94 21 12/13/16 16:00 98.6 75 18 132/63 94 12/13/16 12:00 98.4 62 18 118/57 100 CBC/BMP: 12/14/16 0720 12/14/16 0720 Lab Results Laboratory Tests Test 12/14/16 07:20 White Blood Count 7.6 TH/MM3 Red Blood Count 3.24 MIL/MM3 Hemoglobin 10.1 GM/DL Hematocrit 29.6 % Mean Corpuscular Volume 91.4 FL Mean Corpuscular Hemoglobin 31.3 PG Mean Corpuscular Hemoglobin 34.2 % Concent Red Cell Distribution Width 13.7 % Platelet Count 159 TH/MM3 Mean Platelet Volume 8.7 FL Neutrophils (%) (Auto) 68.2 % Lymphocytes (%) (Auto) 18.4 % Monocytes (%) (Auto) 11.9 % Eosinophils (%) (Auto) 1.1 % Basophils (%) (Auto) 0.4 % Neutrophils # (Auto) 5.2 TH/MM3 Lymphocytes # (Auto) 1.4 TH/MM3 Monocytes # (Auto) 0.9 TH/MM3 Eosinophils # (Auto) 0.1 TH/MM3 Basophils # (Auto) 0.0 TH/MM3 CBC Comment DIFF FINAL Differential Comment Prothrombin Time 15.8 SEC Prothromb Time International 1.4 RATIO Ratio Sodium Level 137 MEQ/L Potassium Level 3.4 MEQ/L Chloride Level 103 MEQ/L Carbon Dioxide Level 26.9 MEQ/L Anion Gap 7 MEQ/L Blood Urea Nitrogen 6 MG/DL Creatinine 0.52 MG/DL Estimat Glomerular Filtration 115 ML/MIN Rate Random Glucose 105 MG/DL Calcium Level 8.5 MG/DL Total Bilirubin 0.5 MG/DL Aspartate Amino Transf 37 U/L (AST/SGOT) Alanine Aminotransferase 23 U/L (ALT/SGPT) Alkaline Phosphatase 97 U/L Total Protein 5.8 GM/DL Albumin 2.6 GM/DL Physical Exam General General Appearance: Well Developed, Well Nourished, No Acute Distress, Comfortable Eyes Eye Exam: Pupils Equal, Pupils Reactive, Sclera White, Extraocular Movement Intact Ears & Nose Ears & Nose Exam: Nasal Mucosa [place] Throat Throat Exam: Oral Mucosa [place] & Moist, Oral Pharynx Normal Neck Neck Exam: Neck Supple, Trachea Midline Pulmonary Resp Exam: Clear Bilaterally, No Distress Cardiology CV Exam: Regular Gastrointestinal/Abdomen GI Exam: Soft, Non-Tender, Non-Distended Musculoskeletal MS Remarks s/p right knee surgery /tenderness right knee / surgical wound right knee. Integumentary Skin Exam: Warm, Dry Skin Remarks surgical wound right knee. Extremeties Extremities Exam: Pedal Pulses Palpable, Trace Edema Neurologic Neuro Exam: Alert, Awake, Oriented, Speech Clear, Band Salvager Equal VTE Prophylaxis VTE Prophylaxis Device: SCDs VTE Prophylaxis Meds: Coumadin Assessment/Plan Assessment/Plan ASSESSMENT 1. Right total knee arthroplasty 2. GERD. 3. Atrial fibrillation with a negative stress test pre-op. 4. History of low back pain. 5. Osteoarthritis. 6. Anemia check Iron studies and B12 and Folic acid... noted low Iron. started replacement. 7. Hyponatremia will monitor. PLAN continue with post op ortho care pain management PT Wound care Bowel regimen Coumadin for DVT prophylaxis Hx afib, stable telemetry monitoring Continue Coreg H & H stable continue with PT D/W RN D/W pt and Check CBC with diff CMP in AM. Discussed Condition with: Patient Livan Robles MD Dec 14, 2016 09:45
[2016-12-14] MEDS ORDERED: POTASSIUM CHLORIDE 10 MEQ CONTROLLED RELEASE TAB PO ONE (10:15)
[2016-12-14] MEDS ORDERED: FERROUS SULFATE 325 MG (65 MG ELEMENTAL IRON) TAB PO SCH (11:00)
[2016-12-14 11:02] LABS: TRANSFERRIN 171 MG/DL (213-418); TRANSFERRIN IRON PROFILE 171 MG/DL (200-360)
[2016-12-14 11:05] LABS: FERRITIN 161 NG/ML (8-252)
[2016-12-14 14:15] VITALS: O2SAT 97
[2016-12-14] MEDS ORDERED: FERR325T20 PO (15:01)
[2016-12-14] MEDS: WARFARIN SOD 6 MG TAB PO SCH (17:19)
--- NOTE | 2016-12-17 11:52 | MD ---
cc: KELSIE RITCHIE M.D. ADMISSION DATE: 12/11/2016 DISCHARGE DATE: 12/14/2016 ADMISSION DIAGNOSIS Right knee osteoarthritis and right tibia plateau fracture, status post open reduction internal fixation with failure of fixation, collapse of the tibia and severe valgus deformity. DISCHARGE DIAGNOSIS: Right knee osteoarthritis and right tibia plateau fracture, status post open reduction internal fixation with failure of fixation, collapse of the tibia and severe valgus deformity. HISTORY OF PRESENT ILLNESS Ms. Colindres is a 76-year-old female who presented to the [facility], for evaluation by Dr. Kelsie Ritchie regarding her progressive right knee pain. The patient states that she had an injury many months ago sustaining a tibia plateau fracture and underwent open reduction, internal fixation of the right tibia plateau fracture. She states since then she has noticed her knee has become more valgus. She is still unable to bear weight and has continued discomfort. The patient is unable to walk without assistive device. She states her pain is constant. She has no alleviating factors. 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 The patient was counseled on her diagnosis and treatment options. The risks, benefits, indications were discussed in great detail. The patient elected to proceed with surgical intervention in a staged fashion. The patient approximately 4-6 weeks ago did undergo removal of hardware with the intention of converting to a total knee arthroplasty. Date of surgery: 12/11/2016. Right total knee arthroplasty. Postop after surgery: The patient admitted to [facility] where she received appropriate medical management, pain control, DVT prophylaxis as well as physical therapy. Discharge: Once being discharged from the hospital, the patient was cleared to go home where she received home health care, home physical therapy. She is in stable condition. She may weightbear as tolerated. She will receive daily dressing changes and has been instructed on appropriate wound care management. The patient has been provided a prescription for pain control. She has resumed her Coumadin approximately 23 hours after surgery. The patient has been provided a follow up appointment in approximately two weeks from the day of surgery. Patient has asked appropriate questions which have been answered. The patient is cleared for discharge. Dictated by: Kelsie White PA-C MD JOAQUÍN Crane/VALERIE /7:53 AM /9:18 AM
--- NOTE | 2016-12-17 18:52 | MD ---
cc: LIVAN MANUEL MD ADMISSION DATE: 12/11/2016 DISCHARGE DATE: 12/14/2016 ADMISSION DIAGNOSIS Status post right knee arthroplasty. Other comorbidities include atrial fibrillation, history of low back pain, osteoarthritis, anemia, hyponatremia. Okay to discharge the patient home with home health care. The patient was admitted with accidental fall back in March of 2016 and had knee surgery. She was admitted again for revision of the right total knee. She was admitted under orthopedic and [place] hospitalist was consulted. She was discharged in satisfactory condition to home with home health care. Diet was cardiac diet. Activity as tolerated. Weightbearing per orthopedic advice. ALLERGIES NO KNOWN DRUG ALLERGIES. DISCHARGE MEDICATIONS Include: 1. Butalbital/acetaminophen/ caffeine 50/325/40 one to two tablets p.o. daily as needed for headache. 2. Carvedilol 6.25 mg twice a day. 3. Estrogen 0.3 milligrams q.h.s. 4. Folic acid 1 milligrams p.o. daily. 5. Gabapentin 300 milligrams p.o. bedtime. 6. Omeprazole 20 milligrams p.o. daily. 7. Prednisone 0.5 milligrams p.o. daily. 8. Progesterone micronized to 100 milligrams p.o. daily. 9. Coumadin 4 milligrams p.o. Sunday, Sunday, Sunday. 10. Coumadin 6 milligrams Sunday, Sunday, , Sunday. ____ stop the medication diclofenac sodium 75 milligrams twice a day. The patient was advised to follow with primary care physician and orthopedics in one week. Special instructions, the patient advised to check PT INR and give report to the primary care physician. The patient verbalized understanding. HOSPITAL COURSE This is a 76-year-old female admitted with a revision on the right total knee. The patient status post surgery. The patient remained stable. No acute event happened. The patient had anemia with a hemoglobin of 10.1, 10.8. WBC count was normal 7.6. Platelet count was 159, normal. The patient had mild hypokalemia which has resolved. The patient had low iron and was started on iron supplement. PT was 15.8 at the time of discharge. INR was 1.4. B12 level was 500 and folic acid level was greater than 20. Further details in the medical record. Livan Manuel MD EA/VENKATA /2:54 PM /6:31 PM
== END 2016-12-14 18:35 | disposition home health service (06) | DRG 470 ==
LOC: HSDI 12-11 06:58 → N06A 12-11 15:15
PROVIDERS: ADMIT Orthopaedic Surgery Sports Medicine; ATTEND Orthopaedic Surgery Sports Medicine
PROC: 0SRC0J9 Replacement of Right Knee Joint with Synthetic Substitute, Cemented, Open Approach (ICD-10-PCS; principal; 2016-12-11 09:25)
DX: M17.31 Unilateral post-traumatic osteoarthritis, right knee (principal); T84.196A Other mechanical complication of internal fixation device of bone of right lower leg, initial encounter; M81.0 Age-related osteoporosis without current pathological fracture; Y83.8 Other surgical procedures as the cause of abnormal reaction of the patient, or of later complication, without mention of misadventure at the time of the procedure
CPT/HCPCS: 73560; 80048; 80053; 82607; 82728; 82746; 83540; 83550; 83735; 84100; 84466; 85025; 85027; 85610; 86850; 86900; 86901; 94150; C1776; J0131; J0171; J0690; J0735; J1100; J1580; J1885; J2250; J2270; J2405; J2710; J2795; J3010; J3370; J7030; J7120; J7512; J8501; L1830

== ENCOUNTER → 2016-11-24 | Outpatient (CLI) | payer MEDICARE, BC ==
[~2016-11-24] MED LIST changes: -ACETAMINOPHEN/HYDROcodone 325 MG/5 MG TAB ONE; -BUPIVACAINE HCL PF 0.5% 30 ML VIAL ONE; -BUPIVACAINE/EPINEPHRINE 0.5% PF 30 ML VIAL ONE; +BUTATAB6 PO; +CARV6.252 PO; +FOLI1TAB6 PO; +GABA300C5 PO; -HYDROCORTISONE SOD SUCCINATE 100 MG VIAL ONE; -LACTATED RINGER'S 1000 ML INJ 1,000 ML ONE; +MENE0.3T3 PO; -MEPERIDINE HCL 25 MG/ML VIAL IV ONE; -MIDAZOLAM HCL 2 MG/2 ML VIAL ONE; -ONDANSETRON HCL 4 MG/2 ML VIAL IV PUSH ONE; +PRED1 PO; +PRIL20TA2 PO; -PROPOFOL 200 MG/20 ML AMP IV ONE; +VOLT100T PO; +WARF-20 PO; +WARF-60 PO; -ceFAZolin INJ 1,000 MG VIAL ONE
[2016-11-24 11:29] LABS: AUTOMATED NEUTROPHIL # 4.4 TH/MM3 (1.8-7.7); BASOPHIL % 0.6 % (0.0-2.0); EOSINOPHIL # 0.1 TH/MM3 (0-0.4); EOSINOPHIL % 2.2 % (0.0-4.0); HEMATOCRIT 36.3 % (35.0-46.0); HEMO FLAGS DIFF FINAL; LYMPH % 21.8 % (9.0-44.0); LYMPHOCYTE # 1.4 TH/MM3 (1.0-4.8); MEAN CELL VOLUME 92.9 FL (80.0-100.0); MEAN CORPUSCULAR HEMOGLOBIN 30.3 PG (27.0-34.0); MEAN CORPUSCULAR HGB CONC 32.6 % (32.0-36.0); MONO % 7.4 % (0.0-8.0); PLATELET COUNT 214 TH/MM3 (150-450); RED BLOOD COUNT 3.91 MIL/MM3 (4.00-5.30); RED CELL DISTRIBUTION WIDTH 14.6 % (11.6-17.2); WHITE BLOOD COUNT 6.5 TH/MM3 (4.0-11.0)
[2016-11-24 11:34] LABS: APTT (PATIENT) 33.1 SEC (24.3-30.1); INTERNATIONAL NORMALIZED RATIO 2.1 RATIO; PROTHROMBIN TIME - PATIENT 23.9 SEC (9.8-11.6)
[2016-11-24 11:54] LABS: BLOOD, URINE NEG (NEG); COMMENT (UR) CULT NOT INDICATED; CULTURE IF INDICATED CULT NOT INDICATED; GLUCOSE,URINE NEG (NEG); KETONE, URINE NEG (NEG); MUCUS URINE FEW /lpf (OCC); NITRITE,URINE NEG (NEG); SQUAMOUS EPITHELIAL CELL URINE 1 /hpf (0-5); URINE COLOR YELLOW (YELLW/STRAW)
[2016-11-24 11:57] LABS: ANION GAP 7 MEQ/L (5-15); AST (GOT) 13 U/L (15-37); BLOOD UREA NITROGEN 15 MG/DL (7-18); CHLORIDE 105 MEQ/L (98-107); GLOMERULAR FILTRATION RATE 70 ML/MIN (>89); GLUCOSE,FASTING 85 MG/DL (74-99); POTASSIUM 4.3 MEQ/L (3.5-5.1); SODIUM (NA) 142 MEQ/L (136-145)
[2016-11-24 12:00] LABS: ALKALINE PHOSPHATASE 101 U/L (45-117); ALT (GPT) 18 U/L (10-53); TOTAL BILIRUBIN ADULT 0.2 MG/DL (0.2-1.0)
--- NOTE | 2016-11-24 12:12 | RADRPT ---
EXAM DATE/TIME: 11/24/2016 11:47 [facility] COMPARISON: No previous studies available for comparison. INDICATIONS : Evaluate for pneumonia, pneumothorax or communicable disease. MEDICAL HISTORY : None. SURGICAL HISTORY : None. ENCOUNTER: Initial ACUITY: 1 day PAIN SCORE: 0/10 LOCATION: Bilateral chest FINDINGS: The lungs are clear without infiltrate, nodule, or mass. There is no appreciable pleural effusion fo r technique. Heart and mediastinum are unremarkable. Degenerative changes and hypertrophic changes a re seen within the disc space and facets of the thoracic spine. CONCLUSION: No acute cardiopulmonary disease. Svetlana Queen MD on November 24, 2016 at 12:10 Board Certified Radiologist. This report was verified electronically.
[2016-11-24 12:41] LABS: WESTERGREN SEDIMENTATION RATE 17 mm/hr (0-30)
== END ==
LOC: CPRE 10:01
PROVIDERS: ATTEND Orthopaedic Surgery Sports Medicine
DX: Z01.812 Encounter for preprocedural laboratory examination (principal); Z01.811 Encounter for preprocedural respiratory examination; M17.11 Unilateral primary osteoarthritis, right knee; M25.50 Pain in unspecified joint; Z96.60 Presence of unspecified orthopedic joint implant; Z79.01 Long term (current) use of anticoagulants
CPT/HCPCS: 36415; 71020; 80053; 81001; 85025; 85610; 85652; 85730

== ENCOUNTER 2016-12-22 14:32 | Observation (INO) | payer MEDICARE, BC ==
[~2016-12-22] VITALS: Ht 165.1 cm; Wt 63.0 kg
[~2016-12-22 14:32] MED LIST changes: -ACET325 PO; -ASPI81TA82 PO; -CARV3.12 PO; +CPMMACHINE; -DICL50 PO; +FERR325T20 PO; -FIORIC PO; -FOLI1TAB PO; -GABA300C3 PO; -OMPR20CCR PO; -PRED5 PO; -VOLT100T PO
[2016-12-22 14:55] VITALS: BP 109/65; PULSE 72; RESP 19; TEMP 98.2; O2SAT 98
[2016-12-22 14:59] VITALS: BP 109/65; PULSE 79; RESP 19; TEMP 98.2; O2SAT 97
[2016-12-22] MEDS ORDERED: ASPI81CH CHEW (15:07)
[2016-12-22] MEDS ORDERED: WARF-23 PO (15:07)
[2016-12-22] MEDS ORDERED: DICL75TA PO (15:08)
[2016-12-22] MEDS ORDERED: WARF-20 PO (15:09)
[2016-12-22] MEDS ORDERED: oxyCODONE/ACETAMINOPHEN 5 MG/325 MG TAB PO ONE ×2 (16:30→17:15)
--- NOTE | 2016-12-22 17:21 | RADRPT ---
EXAM DATE/TIME: 12/22/2016 16:41 [facility] COMPARISON: No previous studies available for comparison. INDICATIONS : Right shoulder pain after fall. MEDICAL HISTORY : None. SURGICAL HISTORY : None. ENCOUNTER: Initial ACUITY: 1 day PAIN SCORE: 5/10 LOCATION: Right Shoulder FINDINGS: 4 views of the right shoulder demonstrate no fracture or dislocation. The acromioclavicular joint is intact but demonstrates mild osteoarthritis change. The visualized soft tissues demonstrate no abnorm ality. Visualized portions of the right lung are clear. No displaced rib fracture is seen. CONCLUSION: No acute abnormality is identified. There is osteoarthritis at the acromioclavicular joint. Alejandro Arboleda MD on December 22, 2016 at 17:19 Board Certified Radiologist. This report was verified electronically.
--- NOTE | 2016-12-22 17:23 | RADRPT ---
EXAM DATE/TIME: 12/22/2016 16:54 [facility] COMPARISON: No previous studies available for comparison. INDICATIONS : Left knee pain after fall. MEDICAL HISTORY : None. SURGICAL HISTORY : None. ENCOUNTER: Initial ACUITY: 1 day PAIN SCORE: 4/10 LOCATION: Left Knee FINDINGS: Four views of the left knee demonstrate no fracture or dislocation. No joint effusion is present. The re is no significant arthropathy and mineralization is decreased. No soft tissue abnormality or radio paque foreign body is identified. CONCLUSION: No acute abnormality. Alejandro Arboleda MD on December 22, 2016 at 17:21 Board Certified Radiologist. This report was verified electronically.
--- NOTE | 2016-12-22 17:23 | RADRPT ---
EXAM DATE/TIME: 12/22/2016 16:41 [facility] COMPARISON: No previous studies available for comparison. INDICATIONS : Right hip pain after fall. MEDICAL HISTORY : None. SURGICAL HISTORY : Total knee replacement, right. ENCOUNTER: Initial ACUITY: 1 day PAIN SCORE: 4/10 LOCATION: Right Hip FINDINGS: AP view of the pelvis with 2 views of the right hip joint demonstrate no fracture or dislocation. William ateral total hip arthroplasty hardware is present and demonstrates no acute finding. No soft tissue a bnormality is seen. CONCLUSION: No acute abnormality is identified. Alejandro Arboleda MD on December 22, 2016 at 17:20 Board Certified Radiologist. This report was verified electronically.
--- NOTE | 2016-12-22 17:35 | PD ---
HPI Chief Complaint: Fall Time Seen by Provider: 15:13 Travel History International Travel<30 days: No Contact w/Intl Traveler<30days: No Traveled to known affect area: No History of Present Illness HPI 76-year-old presents emergent from after a fall. She reports that she had a right total knee replacement done with Dr. Solomon on 819. She was recovering well. She went home. She is on warfarin for A. fib. She got a call from her third shift lieutenant that her INR is 9.5. She went to the [facility] where she received FFP was in the hospital until her INR drop. Is 1.27 this morning. She 'll at [facility] this morning and then while going home had a fall where she was walking and her knee give out on her and she fell and hurt her right shoulder her hips, her right knee. She has trouble raising the right shoulder and tenderness in the right shoulder. History Past Medical History Narrative Medical A. fib, on warfarin Social History Alcohol Use: No Tobacco Use: No Allergies-Medications (Allergen,Severity, Reaction): Coded Allergies: No Known Allergies (Unverified , 12/22/16) Reported Meds & Prescriptions Reported Meds & Active Scripts Active Ferosul (Ferrous Sulfate) 325 Mg Tablet 325 Mg PO BID CPM-Continuous Passive Motion Machine 1 Ea Device 1 Ea .ROUTE DIRECTED Reported Warfarin 4 Mg Tab 4 Mg PO DAILY Diclofenac Sodium DR (Diclofenac Sodium) 75 Mg Tabdr 75 Mg PO BID Aspirin 81 Mg Chew 81 Mg CHEW DAILY Prilosec (Omeprazole Magnesium) 20 Mg Tab 1 Tab PO DAILY Prednisone 1 Mg Tab 0.5 Mg PO DAILY Carvedilol 6.25 Mg Tab 6.25 Mg PO BID Hiuvyxmmzi-Cpqhsysnlchwf-Mifyljpm 50-325-40 Mg Tab 1-2 Tab PO DAILY PRN Do not exceed 6 tablets/day. Menest (Estrogens, Esterified) 0.3 Mg Tab 0.3 Mg PO HS Progesterone Micronized 100 Mg Cap 100 Mg PO DAILY Gabapentin 300 Mg Cap 300 Mg PO HS Folic Acid 1 Mg Tablet 1 Mg PO DAILY Review of Systems Except as stated in HPI: all other systems reviewed are Neg Physical Exam Narrative GENERAL: Well-appearing 76 showed woman, no acute distress. SKIN: Focused skin assessment warm/dry. HEAD: Atraumatic. Normocephalic. EYES: Pupils equal and round. No scleral icterus. No injection or drainage. ENT: No nasal bleeding or discharge. Mucous membranes pink and moist. NECK: Trachea midline. No JVD. CARDIOVASCULAR: Regular rate and rhythm. No murmur appreciated. RESPIRATORY: No accessory muscle use. Clear to auscultation. Breath sounds equal bilaterally. GASTROINTESTINAL: Abdomen soft, non-tender, nondistended. Hepatic and splenic margins not palpable. MUSCULOSKELETAL: Right shoulder is a little bit tenderness. She has pain with active range of motion. She has less pain with passive range of motion. She cannot abduct above the horizontal. Examination of the right knee reveals a little bit of bruising well-healing incision in the midline with an effusion. There is a little bit of warmth but she states is been there chronically. Hips and pelvis are unremarkable. She otherwise looks well. NEUROLOGICAL: Awake and alert. No obvious cranial nerve deficits. Motor grossly within normal limits. Normal speech. PSYCHIATRIC: Appropriate mood and affect; insight and judgment normal. Data Data Last Documented VS Vital Signs Date Time Temp Pulse Resp B/P (MAP) Pulse Ox O2 Delivery O2 Flow Rate FiO2 12/22/16 14:59 98.2 79 19 109/65 (80) 97 Room Air Orders Orders Hip, Ap Only W Ap Pelvis (12/22/16 ) Knee, Complete (4vws) (12/22/16 ) Shoulder, Complete (>2vws) (12/22/16 ) Oxycodone-Acetamin 5-325 Mg (Percocet (12/22/16 16:30) Knee, Complete (4vws) (12/22/16 ) Oxycodone-Acetamin 5-325 Mg (Percocet (12/22/16 17:15) MDM Medical Decision Making Medical Screen Exam Complete: Yes Emergency Medical Condition: Yes Differential Diagnosis Knee injury, hip injury, shoulder injury, other Narrative Course Medical decision making This a 76 old presents emergent from with mostly postop right knee pain, some hip pain, and some right shoulder pain after she fell onto the walker catching herself mostly with the right arm. She looks well. There concern is if she is safe to go home. She fallen once and hasn't really done well. I think she would do better either in long-term or back in the hospital. She would like to avoid rehabilitation if possible it is related except that. My suspicion is she likely needs a couple days in long-term to get her gait and strength back especially being on the warfarin and high risk for falls. Slick Jenkins MD Dec 22, 2016 17:34
--- NOTE | 2016-12-22 18:01 | RADRPT ---
EXAM DATE/TIME: 12/22/2016 17:22 [facility] COMPARISON: KNEE RIGHT LTD (1 OR 2 VWS), December 11, 2016, 13:26. INDICATIONS : Right knee pain after fall. MEDICAL HISTORY : None. SURGICAL HISTORY : Total knee replacement, right. ENCOUNTER: Initial ACUITY: 1 day PAIN SCORE: 10/10 LOCATION: Right Knee FINDINGS: There is prepatellar soft tissue swelling. No fracture or subluxation. Right total knee arthroplasty appears intact and normally aligned. CONCLUSION: Anterior soft tissue swelling without acute bony abnormality. Alejandro Graham MD on December 22, 2016 at 17:59 Board Certified Radiologist. This report was verified electronically.
[2016-12-22 19:37] VITALS: BP 138/62; PULSE 78; RESP 17; O2SAT 97
[2016-12-22 19:50] LABS: AUTOMATED NEUTROPHIL # 6.3 TH/MM3 (1.8-7.7); BASOPHIL % 0.3 % (0.0-2.0); EOSINOPHIL # 0.1 TH/MM3 (0-0.4); EOSINOPHIL % 1.5 % (0.0-4.0); HEMATOCRIT 35.5 % (35.0-46.0); HEMO FLAGS DIFF FINAL; LYMPH % 19.6 % (9.0-44.0); LYMPHOCYTE # 1.7 TH/MM3 (1.0-4.8); MEAN CELL VOLUME 91.2 FL (80.0-100.0); MEAN CORPUSCULAR HEMOGLOBIN 29.7 PG (27.0-34.0); MEAN CORPUSCULAR HGB CONC 32.5 % (32.0-36.0); MONO % 7.4 % (0.0-8.0); NEUT % 71.2 % (16.0-70.0); PLATELET COUNT 366 TH/MM3 (150-450); RED CELL DISTRIBUTION WIDTH 14.5 % (11.6-17.2); WHITE BLOOD COUNT 8.9 TH/MM3 (4.0-11.0)
[2016-12-22 20:08] LABS: BICARBONATE 27.6 MEQ/L (21.0-32.0); POTASSIUM 3.6 MEQ/L (3.5-5.1)
[2016-12-22 20:13] LABS: APTT (PATIENT) 28.1 SEC (24.3-30.1); INTERNATIONAL NORMALIZED RATIO 1.1 RATIO
--- NOTE | 2016-12-22 21:27 | PD ---
Data Data Last Documented VS Vital Signs Date Time Temp Pulse Resp B/P (MAP) Pulse Ox O2 Delivery O2 Flow Rate FiO2 12/22/16 19:39 78 17 97 Room Air 12/22/16 19:37 138/62 (87) 12/22/16 14:59 98.2 Orders Orders Hip, Ap Only W Ap Pelvis (12/22/16 ) Knee, Complete (4vws) (12/22/16 ) Shoulder, Complete (>2vws) (12/22/16 ) Oxycodone-Acetamin 5-325 Mg (Percocet (12/22/16 16:30) Knee, Complete (4vws) (12/22/16 ) Oxycodone-Acetamin 5-325 Mg (Percocet (12/22/16 17:15) Basic Metabolic Panel (Bmp) (12/22/16 19:07) Complete Blood Count With Diff (12/22/16 19:07) Prothrombin Time / Inr (Pt) (12/22/16 19:07) Act Partial Throm Time (Ptt) (12/22/16 19:07) Labs Laboratory Tests Test 12/22/16 19:35 White Blood Count 8.9 TH/MM3 Red Blood Count 3.90 MIL/MM3 Hemoglobin 11.6 GM/DL Hematocrit 35.5 % Mean Corpuscular Volume 91.2 FL Mean Corpuscular Hemoglobin 29.7 PG Mean Corpuscular Hemoglobin Concent 32.5 % Red Cell Distribution Width 14.5 % Platelet Count 366 TH/MM3 Mean Platelet Volume 6.9 FL Neutrophils (%) (Auto) 71.2 % Lymphocytes (%) (Auto) 19.6 % Monocytes (%) (Auto) 7.4 % Eosinophils (%) (Auto) 1.5 % Basophils (%) (Auto) 0.3 % Neutrophils # (Auto) 6.3 TH/MM3 Lymphocytes # (Auto) 1.7 TH/MM3 Monocytes # (Auto) 0.7 TH/MM3 Eosinophils # (Auto) 0.1 TH/MM3 Basophils # (Auto) 0.0 TH/MM3 CBC Comment DIFF FINAL Differential Comment Prothrombin Time 12.0 SEC Prothromb Time International Ratio 1.1 RATIO Activated Partial Thromboplast Time 28.1 SEC Blood Urea Nitrogen 8 MG/DL Creatinine 0.62 MG/DL Random Glucose 93 MG/DL Calcium Level 8.9 MG/DL Sodium Level 140 MEQ/L Potassium Level 3.6 MEQ/L Chloride Level 102 MEQ/L Carbon Dioxide Level 27.6 MEQ/L Anion Gap 10 MEQ/L Estimat Glomerular Filtration Rate 94 ML/MIN MDM Supervised Visit with FRANK: No Narrative Course The patient was initially evaluated by the previous provider and sent out to me at the beginning of my shift. See his note for further details. Briefly this is a 76 year old female with recent revision of right knee replacement earlier this month, admitted to [facility] a few days ago for an INR of 9.5, discharged today, returns to our emergency department today after falling while using her walker. Patient landed onto her right side and is complaining of right knee, right hip, right shoulder pain. She denies head injury or LOC. Left knee x-ray: No acute abnormality. Right knee x-ray: Anterior soft tissue swelling without acute bony abnormality. Right shoulder x-ray: No acute abnormality is identified. There is osteoarthritis at the AC joint. Hip/pelvis x-ray: No acute abnormality is identified. Case management has been involved with this patient throughout her emergency department visit. Initial plan was to try to place her in a SNF, however this cannot be accomplished. The patient will be admitted for overnight observation for likely PT consultation and placement in the morning. Case discussed with [facility] hospitalist MARIELY Bishop. The patient will be admitted to their service under Dr. Meadows. Diagnosis Primary Impression: Fall Qualified Codes: W19.XXXA - Unspecified fall, initial encounter Additional Impressions: Contusion of right knee Qualified Codes: S80.01XA - Contusion of right knee, initial encounter Unsteady gait Admitting Information Admitting Physician Requests: Observation Jurgen Pratt MD Dec 22, 2016 21:27
[2016-12-22] MEDS ORDERED: SENNOSIDES 8.6 MG TAB PO PRN (22:15)
[2016-12-22] MEDS ORDERED: ONDANSETRON HCL 4 MG/2 ML VIAL IVP PRN (22:15)
[2016-12-22] MEDS ORDERED: NALOXONE HCL 0.4 MG/ML AMP IV PRN (22:15)
[2016-12-22] MEDS ORDERED: ACETAMINOPHEN 325 MG TAB PO PRN (22:15)
[2016-12-22] MEDS ORDERED: SODIUM CHLORIDE 0.9% FLUSH 10 ML FLUSH IV FLUSH PRN (22:15)
[2016-12-22] MEDS ORDERED: ACETAMINOPHEN/HYDROcodone 325 MG/7.5 MG TAB PO PRN (22:15)
[2016-12-22] MEDS ORDERED: LACTULOSE SYRUP 20 GM/30 ML CUP PO PRN (22:15)
[2016-12-22] MEDS ORDERED: ACETAMINOPHEN/HYDROcodone 325 MG/5 MG TAB PO PRN (22:15)
[2016-12-22 22:19] VITALS: O2SAT 97
[2016-12-22] MEDS ORDERED: GABAPENTIN 300 MG CAP PO SCH (22:30)
[2016-12-22] MEDS ORDERED: oxyCODONE/ACETAMINOPHEN 5 MG/325 MG TAB PO PRN (22:30)
[2016-12-22 23:20] VITALS: BP 133/60; PULSE 99; RESP 17; TEMP 97.8; O2SAT 96
[2016-12-22 23:43] VITALS: PULSE 87
[2016-12-22] MEDS: ENOXAPARIN SODIUM 60 MG/0.6 ML SYRINGE SQ SCH (23:56)
[2016-12-22] MEDS: WARFARIN SOD 4 MG TAB PO SCH (23:56)
[2016-12-23] VITALS (7 sets, daily range): BP systolic 129–135; BP diastolic 60–89; PULSE 62–92; RESP 16–20; TEMP 97.9–98.4; O2SAT 94–97
[2016-12-23] MEDS ORDERED: DOCUSATE SODIUM 50 MG/SENNA 8.6 MG TAB PO ONE (01:15)
[2016-12-23] MEDS ORDERED: CARVEDILOL 6.25 MG TAB PO ONE (01:15)
[2016-12-23] MEDS: oxyCODONE/ACETAMINOPHEN 10 MG/325 MG TAB PO PRN ×2 (01:22→15:07)
[2016-12-23] MEDS ORDERED: MISCELLANEOUS NURSING INFORMATION PRN (01:30)
[2016-12-23 06:41] LABS: INTERNATIONAL NORMALIZED RATIO 1.1 RATIO; PROTHROMBIN TIME - PATIENT 12.5 SEC (9.8-11.6)
--- NOTE | 2016-12-23 07:11 | MH ---
cc: LACHELLE BONILLA MD DATE OF ADMISSION: 12/22/2016 ADMITTING DIAGNOSIS: The patient was seen at 2200, with chief complaint of weakness, inability to ambulate. HISTORY OF PRESENT ILLNESS This is a pleasant 76 year old female who recently underwent a right total knee replacement previously in March 2016, underwent a revision on 12/11/2016, she tolerated the surgery well. She was discharged home with home health care. She was home for several days when INR became subtherapeutic and she ended up going to [facility] on 12/20/2016, she was given two units of Fresh frozen plasma and one dose of Vitamin K. She was released earlier today from there. She has not moved around much while she was in the hospital and upon arriving home she went to get out of the car and as she got up her foot was on uneven ground and she lost her balance. She did not completely fall, she hit her walker but she did hurt her shoulder and felt a "crunching in her shoulder". She was not able to use her walker or was she able to bear weight in the right knee thus she could not walk. [facility] was called and she was brought into the house. She attempted to move around later and was unable to and came to the hospital. Through the emergency room they attempted to get her into rehab but this is not feasible given the time of night and thus it was decided that she should be placed on observation and have case management work on her discharge tomorrow. The patient does complain of moderate pain in the right knee and moderate pain in the right shoulder. MEDICATIONS: Please ALLERGIES NONE. PAST MEDICAL HISTORY: 1. Atrial fibrillation 2. Osteoarthritis 3. Temporal arteritis. 4. Gastroesophageal reflux disease secondary to medications. PAST SURGICAL HISTORY: 1. Tubal ligation 2. Tonsillectomy. 3. Bilateral total hip replacements. 4. Right total knee replacement. SOCIAL HISTORY: , no tobacco or alcohol. FAMILY HISTORY: Father had brain tumor, mother from Alzheimer's disease. REVIEW OF SYSTEMS The patient states that while she was taking an antiinflammatory it gave her bad heartburn for which she is on proton pump inhibitor, she is off that and currently does not take the proton pump inhibitor at this time. The bowels and bladder have been stable. She denies any specific recent changes in her health. She does note that her right knee is significantly bruised. She did consider going onto on of the anticoagulants with the direction of Dr. Marie her honing machine set up operator however, even with her insurance it was 400 dollars per month and thus she has stuck with Coumadin. PHYSICAL EXAMINATION: VITAL SIGNS: Afebrile. Pulse 99, respirations 17, blood pressure 133/60. O2 saturation is 96% on room air. IN GENERAL: This is a 76 year old female resting comfortably in bed, she is in no distress. HEAD, EYES, EARS, NOSE, AND THROAT: Mucous membranes are moist, no jaundice. NECK: The neck is supple. CARDIOVASCULAR SYSTEM: Irregular, irregular, grade 3/6 systolic ejection murmur is heard. LUNGS: The lungs are clear. GASTROINTESTINAL: Bowel sounds are present. No point tenderness. Or no rebound. GENITOURINARY: No suprapubic tenderness, no costovertebral angle tenderness. MUSCULOSKELETAL SYSTEM: The left lower extremity appears to be within normal limits, distal pulses are palpable. Right lower extremity, the knee incision is bandaged, significant ecchymosis around the bandage is noted but no erythema. Range of motion is not tested. Palpation of the right shoulder reveals no acute abnormality. She is mildly tender over the lateral aspect of the she shoulder, active range of motion, minimal abduction passive range of motion full. NEUROLOGIC: Examination is awake, alert, oriented, speech is clear and fluent. Moves the upper extremities freely. INVESTIGATIONS: White count 8.9, hemoglobin 0.6, platelets are 366. INR 1.1. ____ 140, potassium 3.6, blood urea nitrogen 8, creatinine 0.62. Xray's of the hips and pelvis no acute abnormality, x-rays of the knee, no acute abnormality. X-ray of the right knee shows anterior soft tissue swelling without acute bony abnormality. X-ray of the right shoulder, no acute abnormality. Osteoarthritis at the acromioclavicular joint. IMPRESSION: 1. Inability to ambulate. 2. Subtherapeutic INR (INR on admission is 1.1). 3. Chronic atrial fibrillation. 4. History of temporal arteritis on a small dose of prednisone. 5. Status post recent right total knee. DISCUSSION: The patient was placed on observation status, Dr. Xiao service. PLAN: The plan is to follow up case management for placement in the interim. We will treat her pain with oxycodone. Place her on full dose Lovenox as well as resuming her 4 mg of Coumadin daily. We will check an PT/INR again in the morning. I will ask for a physical therapy consultation. We will resume the rest of her home medications. We will make further recommendations as her case progresses. ESTIMATED LENGTH OF STAY: One to two days, anticipate discharge to group home facility. MD TK Ryan/sasha /11:22 PM /6:17 AM
[2016-12-23] MEDS ORDERED: DOCUSATE SODIUM 50 MG/SENNA 8.6 MG TAB PO SCH (09:00)
[2016-12-23] MEDS ORDERED: CARVEDILOL 6.25 MG TAB PO SCH (09:00)
[2016-12-23] MEDS ORDERED: SODIUM CHLORIDE 0.9% FLUSH 10 ML FLUSH IV FLUSH SCH (09:00)
--- NOTE | 2016-12-23 09:46 | HHI.PR ---
Subjective History of Present Illness I am ok\ R shoulder is sore R knee pain is ok No N/V No abd pain ' denies CP or SOB No fever or chills good appetite offers no other c/o is at bedside Vitals/Results Vital Signs Vital Signs Date Time Temp Pulse Resp B/P (MAP) Pulse Ox O2 Delivery O2 Flow Rate FiO2 12/23/16 08:44 97.9 77 20 129/89 (102) 96 12/23/16 04:18 16 97 12/23/16 04:04 98.4 92 17 130/60 (83) 94 12/23/16 04:04 90 12/22/16 23:43 87 12/22/16 23:20 97.8 99 17 133/60 (84) 96 12/22/16 22:19 97 12/22/16 19:39 78 17 97 Room Air 12/22/16 19:37 78 17 138/62 (87) 97 Room Air 12/22/16 14:59 98.2 79 19 109/65 (80) 97 Room Air 12/22/16 14:59 78 19 97 Room Air 12/22/16 14:55 98.2 72 19 109/65 (80) 98 CBC/BMP: 12/22/16193412/22/161934 Lab Results Laboratory Tests Test 12/22/16 19:35 12/23/16 05:20 White Blood Count 8.9 TH/MM3 Red Blood Count 3.90 MIL/MM3 Hemoglobin 11.6 GM/DL Hematocrit 35.5 % Mean Corpuscular Volume 91.2 FL Mean Corpuscular Hemoglobin 29.7 PG Mean Corpuscular Hemoglobin Concent 32.5 % Red Cell Distribution Width 14.5 % Platelet Count 366 TH/MM3 Mean Platelet Volume 6.9 FL Neutrophils (%) (Auto) 71.2 % Lymphocytes (%) (Auto) 19.6 % Monocytes (%) (Auto) 7.4 % Eosinophils (%) (Auto) 1.5 % Basophils (%) (Auto) 0.3 % Neutrophils # (Auto) 6.3 TH/MM3 Lymphocytes # (Auto) 1.7 TH/MM3 Monocytes # (Auto) 0.7 TH/MM3 Eosinophils # (Auto) 0.1 TH/MM3 Basophils # (Auto) 0.0 TH/MM3 CBC Comment DIFF FINAL Differential Comment Prothrombin Time 12.0 SEC 12.5 SEC Prothromb Time International Ratio 1.1 RATIO 1.1 RATIO Activated Partial Thromboplast Time 28.1 SEC Blood Urea Nitrogen 8 MG/DL Creatinine 0.62 MG/DL Random Glucose 93 MG/DL Calcium Level 8.9 MG/DL Sodium Level 140 MEQ/L Potassium Level 3.6 MEQ/L Chloride Level 102 MEQ/L Carbon Dioxide Level 27.6 MEQ/L Anion Gap 10 MEQ/L Estimat Glomerular Filtration Rate 94 ML/MIN Physical Exam General General Appearance: No Acute Distress, Comfortable Appearance Remarks elderly WF Eyes Eye Exam: Pupils Equal, Sclera White Ears & Nose Ears & Nose Exam: Nasal Mucosa [place] Throat Throat Exam: Oral Mucosa [place] & Moist Neck Neck Exam: Neck Supple, Trachea Midline Pulmonary Resp Exam: Clear Bilaterally, Breath Sounds Equal Cardiology CV Exam: Regular, Murmur CV Remarks soft systolic murmur Gastrointestinal/Abdomen GI Exam: Soft, Non-Tender, Bowel Sounds Present Musculoskeletal MS Remarks R shoulder tender , hurt to raise arm actively FROM passively, No swelling or warmth. R knee swelling w mild bruising , healing surgical incision , No drainage , no redness . No sig warmth. Extremeties Extremities Exam: Pedal Pulses Palpable Neurologic Neuro Exam: Alert, Awake, Oriented, Speech Clear, Moving All Extremities Psychiatric Psych Exam: Appropriate Responses VTE Prophylaxis VTE Prophylaxis Meds: Coumadin Assessment/Plan Assessment/Plan IMPRESSION: . s/p Recent R Total knee arthroplasty . . s/p Near fall w R shoulder strain . difficult to ambulate. . Subtherapeutic INR (INR on admission is 1.1). . Chronic atrial fibrillation on coumadin. . fluctuating INR . History of temporal arteritis on a small dose of prednisone. . Hx GERD . Anemia PLAN clinically stable cont amnalgesic cont coumadin [ Newer Novel AC , she cannot afford], f/u INR closely daily PT Ice R shoulder cont BB cont neurontin stol softener cont current tx pt will benefit from SNF placement as she strained/sprained her R shoulder & will have difficulty using R arm/ walker to ambulate ss to arrange for snf d/c to SNF when arrangements are made d/w PT & , they agreed. d/w SW see MRS see HRS f/u pcp f/u Ortho total time spent > 40 min Melba Meadows MD Dec 23, 2016 09:46
[2016-12-23] MEDS ORDERED: SENN1TAB PO (10:14)
[2016-12-23] MEDS ORDERED: OXYC1TAB63 PO (10:14)
[2016-12-23] MEDS: ENOXAPARIN SODIUM 60 MG/0.6 ML SYRINGE SQ SCH (15:09)
[2016-12-23] MEDS: WARFARIN SOD 4 MG TAB PO SCH (16:16)
== END 2016-12-23 18:19 | disposition home or self-care (01) ==
LOC: NEPD 14:32 → NEDA 21:28 → NEPGCP 23:16
PROVIDERS: ADMIT Specialist; ATTEND Specialist
DX: R53.1 Weakness (principal); R79.1 Abnormal coagulation profile; I48.2 Chronic atrial fibrillation; S46.911A Strain of unspecified muscle, fascia and tendon at shoulder and upper arm level, right arm, initial encounter; S80.01XA Contusion of right knee, initial encounter; M25.562 Pain in left knee; M25.561 Pain in right knee; M25.511 Pain in right shoulder; M25.552 Pain in left hip; M25.551 Pain in right hip; D64.9 Anemia, unspecified; K21.9 Gastro-esophageal reflux disease without esophagitis; R01.1 Cardiac murmur, unspecified; M19.011 Primary osteoarthritis, right shoulder; Z79.01 Long term (current) use of anticoagulants; Z96.651 Presence of right artificial knee joint; Z96.643 Presence of artificial hip joint, bilateral; W19.XXXA Unspecified fall, initial encounter
CPT/HCPCS: 73030; 73501; 73564; 80048; 85025; 85610; 85730; 96372; 97162; 99285; G0378; G8987; G8988; J1650

== ENCOUNTER → 2017-02-23 | Day surgery (SDC) | payer MEDICARE, BC ==
[~2017-02-23] MED LIST changes: +ACETAMINOPHEN/HYDROcodone 325 MG/5 MG TAB ONE; +BUPIVACAINE HCL PF 0.75% 30 ML VIAL ONE; -BUTATAB6 PO; +LACTATED RINGER'S 1000 ML INJ 1,000 ML ONE; +MIDAZOLAM HCL 2 MG/2 ML VIAL ONE; +ONDANSETRON HCL 4 MG/2 ML VIAL IV PUSH ONE; +OXYC1TAB63 PO; +PROPOFOL 500 MG/50 ML BTL IV ONE; +SENN1TAB PO; +SODIUM CHLORIDE 0.9% INJ 10 ML ONE; -WARF-60 PO; +ceFAZolin 2 GM PREMIX 50 ML ONE; +ceFAZolin INJ 1,000 MG VIAL ONE
--- NOTE | 2017-02-23 20:17 | MP ---
cc: KELSIE SOLOMON DATE OF SURGERY 02/23/17 PREOPERATIVE DIAGNOSIS Right patella tendon rupture. POSTOPERATIVE DIAGNOSES Right patella tendon rupture. PROCEDURE Right patella tendon allograft reconstruction. SURGEON Dr. Elvin Solomon ROUGH RICE TENDER HERB Gonzalez ANESTHESIA General. BLOOD LOSS 100 mL. TOURNIQUET TIME 75 minutes at 250 mmHg COMPLICATIONS None IMAGING STUDIES Arthrex JUSTIFICATION This patient is a 76-year-old female who had a trip and fall injury sustaining a rupture of her right patella tendon. She history of prior unrelated total knee arthroplasty. She has shown clinical signs and radiographic confirmation of complete rupture of the patella tendon. The patient was evaluated by the undersigned at [facility]. She was counseled as to risks, benefits and alternatives of the above-named proposed surgical procedure. She did wish to proceed with surgery. PROCEDURE IN DETAIL A written consent was obtained. The patient was identified by name, taken to the operating room, placed supine on the operating room table. General anesthesia was administered as well as 2 grams of IV Ancef. A well-padded tourniquet was placed on the right thigh. The right lower extremity was prepped and draped using isopropyl alcohol, Hibiclens solution and DuraPrep solution. After time-out was performed, the extremity was elevated and a tourniquet inflated to 250 mmHg. A longitudinal incision was made over the anterior aspect of the right knee. There was evidence of a complete rupture of the patella tendon with proximal retraction of the patella and an open knee joint capsule with rupture of the medial and lateral retinaculum. The knee was thoroughly irrigated with 3 liters of sterile saline pulse lavage antibiotic impregnated solution. At this point, a patella tendon allograft was placed over the wound after soaked in antibiotic solution for purposes of reconstruction. Two Arthrex 5.5 mm bio-corkscrew anchors were placed in the proximal tibia. The sutures from his anchors were then placed through the graft and tied. A #2 fiber wire was placed in a whip stitch pattern along the medial and lateral portions of the graft into the retinacular tissue as well as into the quadriceps tendon. The repair was then further imbricated with #2 FiberWire suture. Distally the sutures from the corkscrew anchors were then pulled into a PushLock anchor for backup double row fixation. Surgical wound was thoroughly irrigated again with sterile saline pulse lavage antibiotic impregnated solution. The medial and lateral retinacular tissue was repaired with #1 Vicryl suture. Subcutaneous layer with 2-0 Vicryl suture. Skin was closed with both Dermabond and amy. Sterile dressing was applied. The patient was placed in a knee immobilizer brace. She tolerated the procedure well with no intraoperative complications noted. HERB Contreras, was present during the entire procedure to include patient positioning and the procedure itself. The medical necessity of an assistant hall director was indicated due to the complexity of the procedure. MD JOAQUÍN Crane/ /11:53 AM /8:02 PM
== END | disposition home or self-care (01) ==
LOC: ESDC 08:48
PROVIDERS: ATTEND Orthopaedic Surgery Sports Medicine
DX: S76.111A Strain of right quadriceps muscle, fascia and tendon, initial encounter (principal); W18.30XA Fall on same level, unspecified, initial encounter
CPT/HCPCS: 01320; 27381; 64447; C1713; J0690; J2250; J2405; J3010; J7120